=== PATIENT | female | born 1940 | race Hispanic/Latino ===

== ENCOUNTER 2018-09-15 02:41 | Observation (INO) | payer MEDICARE ==
[2018-09-15] VITALS (7 sets, daily range): BP systolic 123–159; BP diastolic 63–84
[~2018-09-15] VITALS: Ht 152.4 cm; Wt 58.2 kg
[~2018-09-15 02:41] MED LIST: AMLO5TAB9 PO; LACT1CAP58 PO; LOSA50TA64 PO; METF-444 PO; METO-391 PO; PANT40TA25 PO; SIMV40TA59 PO
[2018-09-15 03:20] LABS: EOSINOPHILS % (AUTO) 2.4 % (0.0-8.0); HEMATOCRIT 38.7 % (36-48); LYMPHOCYTES % (AUTO) 38.3 % (21.0-51.0); MEAN CORPUSCULAR HEMOGLOBIN 31.5 pg (27.0-33.0); MEAN CORPUSCULAR HGB CONC 33.7 g/dL (32.0-36.0); MEAN CORPUSCULAR VOLUME 93.4 fL (79-99); NEUTROPHILS % (AUTO) 49.3 % (40.0-77.0); NUCLEATED RED BLOOD CELLS 0.1 % (0.0-0.19); PLATELET COUNT (AUTO) 212 K/uL (130-400); RED BLOOD CELL COUNT(AUTO) 4.14 MIL/uL (4.00-5.50); RED CELL DISTRIBUTION WIDTH 13.7 % (11.0-15.5); WHITE BLOOD COUNT (AUTO) 6.1 K/uL (4.8-10.8)
[2018-09-15 03:26] LABS: CREATININE 0.8 mg/dL (0.5-1.5); POTASSIUM 3.7 mmol/L (3.5-5.1)
[2018-09-15 03:30] LABS: INR 0.95 (0.85-1.15); PARTIAL THROMBOPLASTIN TIME 30.2 SEC (26.3-35.5)
[2018-09-15 03:45] LABS: BILIRUBIN,TOTAL 0.4 mg/dL (0.2-1.0); TOTAL PROTEIN, SERUM 7.5 g/dL (6.0-8.3)
[2018-09-15] MEDS ORDERED: DiphenhydrAMINE HCL 50 MG/ML VIAL ONE (04:06)
[2018-09-15 04:29] LABS: APPEARANCE,URINE Clear (CLEAR); BILIRUBIN,URINE Negative (NEGATIVE); COLOR,URINE Yellow (YELLOW); GLUCOSE, URINE (UA) Negative (NEGATIVE); KETONES,URINE Negative (NEGATIVE); LEUKOCYTE ESTERASE ,URINE Negative (NEGATIVE); NITRATE,URINE Negative (NEGATIVE); OCCULT BLOOD,URINE Negative (NEGATIVE); PH,URINE 7.5 (5.0-8.0); PROTEIN,URINE Negative (NEGATIVE); UROBILINOGEN,URINE 0.2 mg/dL (0.2-1.0)
[2018-09-15] MEDS ORDERED: HYDRALAZINE HCL 20 MG/ML VIAL IV PRN (06:45)
[2018-09-15] MEDS ORDERED: ALBU8.5H8 PUFF (08:12)
[2018-09-15] MEDS ORDERED: SUCR1TAB PO (08:12)
[2018-09-15 08:34] LABS: HEMOGLOBIN A1C 5.7 % (4.0-6.0)
[2018-09-15] MEDS: SODIUM CHLORIDE 0.9% 1000ML 1,000 ML IV SCH ×2 (08:35→21:15)
[2018-09-15 08:51] LABS: CREATINE KINASE, TOTAL 80 U/L (21-232); MYOGLOBIN 53 ng/mL (10-92); THYROID STIMULATING HORMONE 2.34 uIU/mL (0.36-3.74); TROPONIN I < 0.04 ng/mL (0.00-0.06)
[2018-09-15] MEDS: ASPIRIN 325 MG TABLET PO SCH (09:00)
[2018-09-15] MEDS ORDERED: PANTOPRAZOLE 40 MG/VIAL IVP SCH (09:00)
[2018-09-15] MEDS: ENOXAPARIN SODIUM 40 MG/0.4 ML SYRINGE SQ SCH (09:12)
[2018-09-15] MEDS: INSULIN HUMULIN R 100 UNIT/ML 3ML SQ SCH ×3 (11:30→21:00)
[2018-09-15 14:56] LABS: CREATINE KINASE, TOTAL 73 U/L (21-232); MYOGLOBIN 46 ng/mL (10-92); TROPONIN I < 0.04 ng/mL (0.00-0.06)
[2018-09-15] MEDS: PANTOPRAZOLE SODIUM 40 MG TABLET.DR PO SCH (15:17)
[2018-09-15] MEDS ORDERED: NITROGLYCERIN 0.4 MG SL TAB SL ONE (17:50)
--- NOTE | 2018-09-15 17:55 | NUR ---
SUBLINGUAL NITRO GIVEN PT C/O CHEST PAIN 05/19.
--- NOTE | 2018-09-15 18:10 | NUR ---
CHEST PAIN 0/10 AFTER 1 SUBLINGUAL NITRO GIVEN.
[2018-09-15] MEDS ORDERED: PHARMACY COMMUNICATION MISC SCH (20:30)
[2018-09-15] MEDS ORDERED: COMPOUND PO MISCELLANEOUS 1 EACH MISC MISC PRN (20:45)
[2018-09-15] MEDS ORDERED: LIDOCAINE HCL 2% VISCOUS 30 ML, MAG HYDROX/AL HYDROX/SIMETH 30 ML, DICYCLOMINE HCL 20 MG PO ONE ×3 (21:35)
[2018-09-15 23:07] LABS: CREATINE KINASE, TOTAL 59 U/L (21-232); MYOGLOBIN 36 ng/mL (10-92); TROPONIN I < 0.04 ng/mL (0.00-0.06)
[2018-09-16 03:00] VITALS: BP 145/77
[2018-09-16 03:53] LABS: CHOLESTEROL 190 mg/dL (<200); HDL CHOLESTEROL 59 mg/dL (35-85); LDL DIRECT 119 mg/dL (0-99); TRIGLYCERIDES 92 mg/dL (30-200)
[2018-09-16] MEDS: INSULIN HUMULIN R 100 UNIT/ML 3ML SQ SCH (05:31)
[2018-09-16 07:45] VITALS: BP 146/66
--- NOTE | 2018-09-16 07:50 | NUR ---
ASSESSMENT ENCOUNTERED PT SITTING UP IN CHAIR, A&OX3 BUT FORGETFUL, CALM COOPERATIVE AND DOES NOT APPEAR TO BE IN ANY DISTRESS NOR ANY NEURO DEFICITS PRESENT. PT IS AMBULATORY, GAIT SLOW BUT STEADY WITH ASSIST. PT IS ABLE TO TOLERATE FOODS, FLUIDS AND MEDICATION WITH NO THROAT CLEARING OR COUGH. PT RESTING COMFORTABLY, CALL LIGHT WITHIN REACH, FAMILY AT BEDSIDE.
[2018-09-16] MEDS ORDERED: Metoprolol Succinate 50 MG PO SCH (09:00)
[2018-09-16] MEDS ORDERED: METFORMIN HCL 500 MG TABLET PO SCH (09:00)
[2018-09-16] MEDS ORDERED: SIMVASTATIN 20 MG TABLET PO SCH (09:00)
[2018-09-16] MEDS: ASPIRIN 325 MG TABLET PO SCH (09:00)
[2018-09-16] MEDS ORDERED: PANTOPRAZOLE SODIUM 40 MG TABLET.DR PO SCH (09:00)
[2018-09-16] MEDS ORDERED: VENTOLIN HFA IH PRN (09:00)
[2018-09-16] MEDS ORDERED: SUCRALFATE 1 GM TABLET PO SCH (09:00)
[2018-09-16] MEDS ORDERED: AMLODIPINE BESYLATE 5 MG TAB PO SCH (09:00)
[2018-09-16] MEDS: PANTOPRAZOLE SODIUM 40 MG TABLET.DR PO SCH (09:11)
[2018-09-16] MEDS: ENOXAPARIN SODIUM 40 MG/0.4 ML SYRINGE SQ SCH (09:12)
[2018-09-16] MEDS ORDERED: NITR0.4T50 SL (10:18)
--- NOTE | 2018-09-16 11:00 | NUR ---
DISCHARGE INSTRUCTIONS GIVEN, PIV REMOVED AND INTACT, DISCHARGED HOME TO FAMILY VEHICLE VIA WHEELCHAIR.
== END 2018-09-16 11:16 | disposition home or self-care (01) ==
LOC: EDH 02:41 → EDHIP 06:34 → 2DH 08:18
PROVIDERS: ADMIT Internal Medicine; ATTEND Internal Medicine
DX: G45.9 Transient cerebral ischemic attack, unspecified (principal); R47.01 Aphasia; R07.89 Other chest pain; E11.51 Type 2 diabetes mellitus with diabetic peripheral angiopathy without gangrene; H53.2 Diplopia; E78.2 Mixed hyperlipidemia; I10 Essential (primary) hypertension; I25.10 Atherosclerotic heart disease of native coronary artery without angina pectoris; I44.0 Atrioventricular block, first degree; K21.9 Gastro-esophageal reflux disease without esophagitis; Z86.73 Personal history of transient ischemic attack (TIA), and cerebral infarction without residual deficits; Z87.891 Personal history of nicotine dependence; Z95.5 Presence of coronary angioplasty implant and graft; Z79.82 Long term (current) use of aspirin; Z79.899 Other long term (current) drug therapy
CPT/HCPCS: 36415 ×2; 70450; 70551; 71045; 80053; 80061; 81003; 82550 ×4; 82948 ×4; 83036; 83874 ×4; 83880; 84443; 84484 ×4; 85025; 85610; 85730; 93005 ×3; 93306; 93880; 96372 ×2; 99284; G0378 ×29; J1200; J1650 ×2; J1815; J7030 ×2; C9113

== ENCOUNTER 2019-03-13 20:22 | Inpatient (IN) | payer MEDICARE ==
[~2019-03-13 20:22] MED LIST changes: +ALBU8.5H8 PUFF; -LACT1CAP58 PO; -LOSA50TA64 PO; +NITR0.4T50 SL; +SUCR1TAB PO
[2019-03-13] MEDS ORDERED: MORPHINE SULFATE 2 MG/ML 1ML SYG ONE (20:54)
[2019-03-13 21:06] LABS: BASOPHILS % (AUTO) 0.7 % (0.0-5.0); EOSINOPHILS % (AUTO) 1.3 % (0.0-8.0); HEMATOCRIT 37.8 % (36-48); LYMPHOCYTES % (AUTO) 46.4 % (21.0-51.0); MEAN CORPUSCULAR HEMOGLOBIN 32.1 pg (27.0-33.0); MEAN CORPUSCULAR HGB CONC 34.2 g/dL (32.0-36.0); MEAN CORPUSCULAR VOLUME 94.1 fL (79-99); NEUTROPHILS % (AUTO) 41.6 % (40.0-77.0); PLATELET COUNT (AUTO) 203 K/uL (130-400); RED BLOOD CELL COUNT(AUTO) 4.02 MIL/uL (4.00-5.50); RED CELL DISTRIBUTION WIDTH 14.1 % (11.0-15.5); WHITE BLOOD COUNT (AUTO) 6.4 K/uL (4.8-10.8)
[2019-03-13] MEDS ORDERED: ASPIRIN 325 MG TABLET ONE (21:08)
[2019-03-13] MEDS ORDERED: NITROGLYCERIN 1GM/1 INCH PACKET TD ONE (21:09)
[2019-03-13 21:25] LABS: AMYLASE 36 U/L (25-115); CREATINE KINASE, TOTAL 96 U/L (21-232); LIPASE 113 U/L (114-286)
[2019-03-13 21:36] LABS: B-TYPE NATRIURETIC PEPTIDE 76 pg/mL (0-100)
[2019-03-13 21:43] LABS: CREATININE 0.8 mg/dL (0.5-1.5); POTASSIUM 3.6 mmol/L (3.5-5.1)
[2019-03-13 21:48] LABS: ALBUMIN 3.7 g/dL (3.5-5.0); BILIRUBIN,TOTAL 0.2 mg/dL (0.2-1.0); TOTAL PROTEIN, SERUM 7.2 g/dL (6.0-8.3)
[2019-03-13 21:56] LABS: APPEARANCE,URINE Clear (CLEAR); BILIRUBIN,URINE Negative (NEGATIVE); COLOR,URINE Yellow (YELLOW); GLUCOSE, URINE (UA) Negative (NEGATIVE); KETONES,URINE Negative (NEGATIVE); LEUKOCYTE ESTERASE ,URINE Negative (NEGATIVE); NITRATE,URINE Negative (NEGATIVE); OCCULT BLOOD,URINE Negative (NEGATIVE); PH,URINE 7.5 (5.0-8.0); PROTEIN,URINE Negative (NEGATIVE)
[2019-03-13] MEDS ORDERED: GLUCAGON 1MG KIT 1 MG ML IM PRN (23:15)
[2019-03-13] MEDS ORDERED: DEXTROSE 50%-WATER 50 ML DISP.SYRIN IV PRN (23:15)
[2019-03-13 23:27] LABS: MAGNESIUM 2.3 mg/dL (1.80-2.40); THYROID STIMULATING HORMONE 2.58 uIU/mL (0.36-3.74)
[2019-03-13 23:30] LABS: HEMOGLOBIN A1C 5.6 % (4.0-6.0)
[2019-03-13] MEDS ORDERED: NITROGLYCERIN 0.4 MG SL TAB SL PRN (23:30)
[2019-03-13] MEDS ORDERED: ACETAMINOPHEN 325 MG TAB PO PRN ×2 (23:30)
[2019-03-13] MEDS ORDERED: ONDANSETRON HCL 4 MG/2 ML VIAL IV PRN (23:30)
[2019-03-14] MEDS ORDERED: LACTULOSE 20 GM/30 ML UDCUP PO PRN (01:45)
[2019-03-14] MEDS ORDERED: DIPHENHYDRAMINE HCL 25 MG CAPSULE ONE (03:56)
[2019-03-14 04:48] LABS: BASOPHILS % (AUTO) 3.1 % (0.0-5.0); EOSINOPHILS % (AUTO) 1.5 % (0.0-8.0); HEMATOCRIT 40.2 % (36-48); LYMPHOCYTES % (AUTO) 33.1 % (21.0-51.0); MEAN CORPUSCULAR HEMOGLOBIN 31.8 pg (27.0-33.0); MEAN CORPUSCULAR HGB CONC 34.2 g/dL (32.0-36.0); MEAN CORPUSCULAR VOLUME 93.1 fL (79-99); NEUTROPHILS % (AUTO) 53.3 % (40.0-77.0); NUCLEATED RED BLOOD CELLS 0.1 % (0.0-0.19); PLATELET COUNT (AUTO) 230 K/uL (130-400); RED BLOOD CELL COUNT(AUTO) 4.32 MIL/uL (4.00-5.50); RED CELL DISTRIBUTION WIDTH 13.9 % (11.0-15.5)
[2019-03-14 05:01] LABS: ALBUMIN 3.1 g/dL (3.5-5.0); BILIRUBIN,TOTAL 0.3 mg/dL (0.2-1.0); CREATININE 0.5 mg/dL (0.5-1.5); POTASSIUM 3.2 mmol/L (3.5-5.1); TOTAL PROTEIN, SERUM 6.3 g/dL (6.0-8.3)
[2019-03-14 05:05] LABS: CREATINE KINASE, TOTAL 75 U/L (21-232); MYOGLOBIN 40 ng/mL (10-92); TROPONIN I < 0.04 ng/mL (0.00-0.06)
[2019-03-14] MEDS ORDERED: LIDOCAINE HCL-MPF 1% 2ML VIAL IVP PRN (06:00)
[2019-03-14] MEDS ORDERED: POTASSIUM CHLORIDE 20MEQ/100ML 100 ML IV PRN (06:00)
[2019-03-14] MEDS ORDERED: MAGNESIUM 2GM PREMIX 50ML 50 ML IV PRN (06:00)
[2019-03-14] MEDS ORDERED: POTASSIUM CHLORIDE 10% ELIXIR 20 MEQ/15 ML UDCUP PO PRN (06:00)
[2019-03-14] MEDS: INSULIN HUMULIN R 100 UNIT/ML 3ML SQ SCH ×4 (07:30→21:00)
[2019-03-14] MEDS: METOPROLOL TARTRATE 25 MG TAB PO SCH ×2 (09:00→21:44)
[2019-03-14] MEDS: ASPIRIN 325 MG TABLET PO SCH (09:00)
[2019-03-14] MEDS: FAMOTIDINE 20MG TAB 20 MG TAB PO SCH ×2 (09:00→21:44)
[2019-03-14] MEDS: ENOXAPARIN SODIUM 30 MG/0.3 ML SQ SCH (09:00)
[2019-03-14] MEDS ORDERED: POTASSIUM CHLORIDE 10% ELIXIR 20 MEQ/15 ML UDCUP ONE ×2 (09:05→15:25)
[2019-03-14] MEDS ORDERED: FAMOTIDINE 20MG TAB 20 MG TAB ONE (09:44)
[2019-03-14] MEDS ORDERED: ASPIRIN 325 MG TABLET ONE (09:44)
[2019-03-14] MEDS ORDERED: ENOXAPARIN SODIUM 30 MG/0.3 ML SQ ONE (09:45)
[2019-03-14] MEDS ORDERED: METOPROLOL TARTRATE 25 MG TAB ONE (09:45)
[2019-03-14] MEDS: LACTULOSE 20 GM/30 ML UDCUP PO SCH (11:00)
[2019-03-14 13:48] LABS: CREATINE KINASE, TOTAL 55 U/L (21-232); MYOGLOBIN 64 ng/mL (10-92); TROPONIN I < 0.04 ng/mL (0.00-0.06)
--- NOTE | 2019-03-14 18:15 | NUR ---
REPORT RECEIVED BY YNES BAIRES FROM YNES TERAN(ED). PATIENT ADMITTED UNDER DR. MOORE FOR CHEST PAIN R/O ACS. NO CONSULTS. PATIENT AT THIS TIME.
[2019-03-14 18:18] VITALS: BP 148/75
[2019-03-14] MEDS ORDERED: AMLO5TAB9 PO (18:40)
[2019-03-14] MEDS: DOCUSATE SODIUM 100 MG CAP PO SCH (21:44)
[2019-03-14 23:58] VITALS: BP 159/80
[2019-03-15 04:13] VITALS: BP 118/64
[2019-03-15 05:11] LABS: HEMATOCRIT 40.3 % (36-48); MEAN CORPUSCULAR HEMOGLOBIN 32.3 pg (27.0-33.0); MEAN CORPUSCULAR VOLUME 92.5 fL (79-99); PLATELET COUNT (AUTO) 210 K/uL (130-400); RED BLOOD CELL COUNT(AUTO) 4.35 MIL/uL (4.00-5.50); RED CELL DISTRIBUTION WIDTH 14.1 % (11.0-15.5); WHITE BLOOD COUNT (AUTO) 8.2 K/uL (4.8-10.8)
[2019-03-15 05:21] LABS: CREATININE 0.8 mg/dL (0.5-1.5); MAGNESIUM 2.3 mg/dL (1.80-2.40); POTASSIUM 3.2 mmol/L (3.5-5.1)
[2019-03-15] MEDS: INSULIN HUMULIN R 100 UNIT/ML 3ML SQ SCH ×4 (05:49→21:00)
[2019-03-15 07:40] VITALS: BP 161/71
[2019-03-15] MEDS: DOCUSATE SODIUM 100 MG CAP PO SCH ×3 (09:58→21:00)
[2019-03-15] MEDS: ASPIRIN 325 MG TABLET PO SCH (09:58)
[2019-03-15] MEDS: FAMOTIDINE 20MG TAB 20 MG TAB PO SCH ×2 (09:58→20:59)
[2019-03-15] MEDS: METOPROLOL TARTRATE 25 MG TAB PO SCH ×4 (09:58→21:00)
[2019-03-15] MEDS: ENOXAPARIN SODIUM 30 MG/0.3 ML SQ SCH (09:59)
[2019-03-15 12:00] VITALS: BP 131/62
[2019-03-15] MEDS: LACTULOSE 20 GM/30 ML UDCUP PO SCH (13:09)
[2019-03-15] MEDS: POLYETHYLENE GLYCOL 3350 17 GM POWD.PACK PO SCH (15:27)
[2019-03-15 16:00] VITALS: BP 90/56
[2019-03-15] MEDS: POTASSIUM CHLORIDE 20 MEQ ERTAB PO PRN ×2 (18:32→21:00)
[2019-03-15 19:45] VITALS: BP 143/78
--- NOTE | 2019-03-15 20:46 | NUR ---
cm note met with patient's grand daughter bob mauricio, and states resides at home wiht daughter yajaira corado , needs assist with adls and daughter yajaira coronado, is also in the process of getting a provider. uses walker for ambulation. has a w/c , daughter assists with transport. dc plan is back to home at time of dc. no dc needs.discussed possible snf . sttates they wish to wait until dr dave visits tomorrow to decide if snf if really necessary prefer for her to return back home. Addendum: 03/15/19 at 2047 by JAVON POWELL CM Amended: Links added.
--- NOTE | 2019-03-15 22:00 | NUR ---
PATIENT WITH DEMENTIA CONFUSED AND UNCOOPERATIVE WITH TAKING EVENING MEDICATIONS. PATIENT STATES WHEN ASKED WHAT HER NAME IS " THEY CALL ME JACK , I DON'T KNOW WHY".
[2019-03-15 23:47] VITALS: BP 139/73
[2019-03-16] MEDS: FAMOTIDINE 20MG TAB 20 MG TAB PO SCH ×2 (00:08→10:12)
--- NOTE | 2019-03-16 01:11 | NUR ---
REPORT GIVEN TO YNES MARTINEZ. PATIENT TRANSFERRED TO ROOM 325 WITH 1:1 SITTER.
--- NOTE | 2019-03-16 01:11 | NUR ---
ASSUMED CARE Assumed care this time,pt sleeping quietly in bed,No distress noted.Sitter at bedside.
[2019-03-16 04:00] VITALS: BP 113/74
[2019-03-16] MEDS: INSULIN HUMULIN R 100 UNIT/ML 3ML SQ SCH ×3 (06:09→20:23)
[2019-03-16 06:45] LABS: HEMATOCRIT 39.8 % (36-48); MEAN CORPUSCULAR HEMOGLOBIN 31.4 pg (27.0-33.0); MEAN CORPUSCULAR HGB CONC 34.3 g/dL (32.0-36.0); MEAN CORPUSCULAR VOLUME 91.6 fL (79-99); NUCLEATED RED BLOOD CELLS 0.1 % (0.0-0.19); PLATELET COUNT (AUTO) 226 K/uL (130-400); RED BLOOD CELL COUNT(AUTO) 4.35 MIL/uL (4.00-5.50); RED CELL DISTRIBUTION WIDTH 14.1 % (11.0-15.5); WHITE BLOOD COUNT (AUTO) 6.3 K/uL (4.8-10.8)
[2019-03-16 07:02] LABS: CREATININE 0.8 mg/dL (0.5-1.5); POTASSIUM 3.6 mmol/L (3.5-5.1)
[2019-03-16 07:19] VITALS: BP 156/86
[2019-03-16] MEDS ORDERED: ASPIRIN 325 MG TABLET PO SCH (09:00)
--- NOTE | 2019-03-16 10:00 | NUR ---
Dr. Paulino rounding with son at bedside
[2019-03-16] MEDS: DOCUSATE SODIUM 100 MG CAP PO SCH ×2 (10:12→20:11)
[2019-03-16] MEDS: ENOXAPARIN SODIUM 30 MG/0.3 ML SQ SCH (10:12)
[2019-03-16] MEDS: METOPROLOL TARTRATE 25 MG TAB PO SCH ×3 (10:13→20:12)
[2019-03-16] MEDS: POLYETHYLENE GLYCOL 3350 17 GM POWD.PACK PO SCH ×2 (10:13→11:30)
[2019-03-16] MEDS ORDERED: ASPIRIN 81MG TAB.CHEW ONE (10:19)
[2019-03-16] MEDS ORDERED: GADODIAMIDE 10 MMOL/20 ML VIAL IV ONE (10:36)
[2019-03-16] MEDS: LACTULOSE 20 GM/30 ML UDCUP PO SCH (11:00)
[2019-03-16 11:34] LABS: T4 (THYROXINE) 9.5 ug/dL (4.7-13.3); THYROID STIMULATING HORMONE 2.57 uIU/mL (0.36-3.74)
[2019-03-16 12:00] VITALS: BP 117/74
[2019-03-16 16:00] VITALS: BP 157/89
[2019-03-16 19:00] VITALS: BP 105/64
--- NOTE | 2019-03-16 21:00 | NUR ---
ACTIVITY Family at bedside,pt ambulating in the hallway,zane well.
--- NOTE | 2019-03-17 03:04 | NUR ---
SLEEP Pt slept fairly,respirations even and unlabored.
[2019-03-17 04:02] VITALS: BP 128/74
[2019-03-17 04:57] LABS: HEMATOCRIT 38.5 % (36-48); MEAN CORPUSCULAR HEMOGLOBIN 32.1 pg (27.0-33.0); MEAN CORPUSCULAR HGB CONC 34.8 g/dL (32.0-36.0); MEAN CORPUSCULAR VOLUME 92.3 fL (79-99); PLATELET COUNT (AUTO) 206 K/uL (130-400); RED BLOOD CELL COUNT(AUTO) 4.18 MIL/uL (4.00-5.50); RED CELL DISTRIBUTION WIDTH 13.8 % (11.0-15.5); WHITE BLOOD COUNT (AUTO) 7.3 K/uL (4.8-10.8)
[2019-03-17 05:07] LABS: CREATININE 0.7 mg/dL (0.5-1.5); POTASSIUM 3.5 mmol/L (3.5-5.1)
[2019-03-17] MEDS: POTASSIUM CHLORIDE 20 MEQ ERTAB PO PRN (05:36)
[2019-03-17] MEDS: INSULIN HUMULIN R 100 UNIT/ML 3ML SQ SCH (06:13)
[2019-03-17 08:00] VITALS: BP 148/88
[2019-03-17] MEDS: FAMOTIDINE 20MG TAB 20 MG TAB PO SCH (08:47)
[2019-03-17] MEDS: DOCUSATE SODIUM 100 MG CAP PO SCH (08:47)
[2019-03-17] MEDS: METOPROLOL TARTRATE 25 MG TAB PO SCH (08:47)
[2019-03-17] MEDS: POLYETHYLENE GLYCOL 3350 17 GM POWD.PACK PO SCH (08:47)
[2019-03-17] MEDS: ENOXAPARIN SODIUM 30 MG/0.3 ML SQ SCH (08:48)
--- NOTE | 2019-03-17 13:55 | NUR ---
DC PLAN VISITED WITH PATIENT AND FAMILY WENT OVER PLAN OF CARE FOR DC. NOT SURE ABOUT SNF. PATIENT FAMILY WANTS [facility] CALLED SPOKE TO KAYLIE THEY DO NOT ACCEPT CURRENT INSURANCE. PATIENT HAS [facility]. EXPLAINED ALSO THAT FACILITIES DO NOT DO SITTERS AND IF THEY WANTED THAT FOR PATIENT THEY WOULD HAVE TO PRIVATE PAY. GAVE THEM LIST OF FACILITIES IN [place] [facility] PRIVATE CARE GIVERS AND INFO FOR DADS. EXPLAINED ABOUT THE REFERRAL PROCESS AND GOING HOME TO SEE PRIMARY TO GET REFERRAL FOR NUEROLOGY. AT THE END OF 20 MIN CONVERSATION FAMILY DECIDED TO TAKE PATIENT HOME. SAYS THEY FEEL SAFE AND LIKELY WILL HAVE PATIENT MOVE IN WITH SISTER UNTIL THEY CAN GET A BETTER IDEA ON PATIENT MENTAL STATUS. Addendum: 03/17/19 at 1359 by TERESA ZHOU RN CM Amended: Links added.
--- NOTE | 2019-03-17 16:35 | NUR ---
Patient discharged in stable condition. Patient daughter Charlene Purdy given discharge instruction. Patient instructed to f/u with Dr. Paulino as scheduled for f/u and recommendation of NHP. Patient instructed to call 911 or come back to ER if SOB, chest pain, changes in mental status, n/v or servere pain. Daughter states she will be f/u with Dr. Meehan (PCP) tomorrow. IV removed to RAC. pt tolerated well. Telmonitor removed.
== END 2019-03-17 16:55 | disposition home or self-care (01) | DRG 72 ==
LOC: EDH 20:22 → EDHIP 22:23 → OBSVTOIN 22:23 → 4CH 03-14 17:30 → 3DH 03-16 02:02
PROVIDERS: ADMIT Hospitalist; ATTEND Hospitalist
DX: G93.41 Metabolic encephalopathy (principal); R00.0 Tachycardia, unspecified; E87.6 Hypokalemia; K59.00 Constipation, unspecified; I10 Essential (primary) hypertension; R07.9 Chest pain, unspecified; E11.9 Type 2 diabetes mellitus without complications; E78.5 Hyperlipidemia, unspecified; I25.10 Atherosclerotic heart disease of native coronary artery without angina pectoris; Z86.73 Personal history of transient ischemic attack (TIA), and cerebral infarction without residual deficits; Z95.5 Presence of coronary angioplasty implant and graft; Z79.84 Long term (current) use of oral hypoglycemic drugs; Z79.899 Other long term (current) drug therapy
CPT/HCPCS: 36415; 70450; 70553; 71045; 74021; 80048; 80053; 80061; 81003; 82150; 82550; 82607; 82948; 83036; 83690; 83735; 83874; 83880; 84436; 84443; 84484; 85025; 85027; 86592; 93005; A9579; G0378; J1650; Q0163

== ENCOUNTER 2019-06-07 09:12 | Inpatient (IN) | payer MEDICARE ==
[~2019-06-07] VITALS: Ht 152.4 cm; Wt 43.5 kg
[~2019-06-07 09:12] MED LIST changes: -PANT40TA25 PO; -SIMV40TA59 PO; -SUCR1TAB PO
[2019-06-07 09:56] LABS: APPEARANCE,URINE Clear (CLEAR); BILIRUBIN,URINE Negative (NEGATIVE); COLOR,URINE Yellow (YELLOW); GLUCOSE, URINE (UA) Negative (NEGATIVE); KETONES,URINE Negative (NEGATIVE); LEUKOCYTE ESTERASE ,URINE Small (NEGATIVE); NITRATE,URINE Negative (NEGATIVE); OCCULT BLOOD,URINE Negative (NEGATIVE); PH,URINE 6.5 (5.0-8.0); PROTEIN,URINE Negative (NEGATIVE)
[2019-06-07 10:11] LABS: BACTERIA,URINE Rare /HPF (None Seen); RBC,URINE 0-1 /HPF (0-1); SQUAMOUS EPITHELIAL CELL,UR Rare /HPF (0-2); WBC,URINE 0-1 /HPF (0-1)
[2019-06-07] MEDS ORDERED: NITROGLYCERIN 1GM/1 INCH PACKET TD ONE (10:14)
[2019-06-07] MEDS ORDERED: ASPIRIN 325 MG TABLET ONE (10:14)
[2019-06-07 10:33] LABS: BASOPHILS % (AUTO) 0.8 % (0.0-5.0); EOSINOPHILS % (AUTO) 0.6 % (0.0-8.0); HEMATOCRIT 38.2 % (36-48); MEAN CORPUSCULAR HEMOGLOBIN 32.9 pg (27.0-33.0); MEAN CORPUSCULAR HGB CONC 34.7 g/dL (32.0-36.0); MEAN CORPUSCULAR VOLUME 94.6 fL (79-99); MONOCYTES % (AUTO) 6.8 % (3.0-13.0); NEUTROPHILS % (AUTO) 64.8 % (40.0-77.0); NUCLEATED RED BLOOD CELLS 0.1 % (0.0-0.19); PLATELET COUNT (AUTO) 223 K/uL (130-400); RED BLOOD CELL COUNT(AUTO) 4.04 MIL/uL (4.00-5.50); RED CELL DISTRIBUTION WIDTH 14.9 % (11.0-15.5); WHITE BLOOD COUNT (AUTO) 5.9 K/uL (4.8-10.8)
[2019-06-07 10:46] LABS: CREATININE 0.6 mg/dL (0.5-1.5); POTASSIUM 3.8 mmol/L (3.5-5.1)
[2019-06-07 10:50] LABS: ALBUMIN 3.4 g/dL (3.5-5.0); BILIRUBIN,TOTAL 0.3 mg/dL (0.2-1.0); TOTAL PROTEIN, SERUM 6.4 g/dL (6.0-8.3)
[2019-06-07] MEDS ORDERED: DiphenhydrAMINE HCL 50 MG/ML VIAL IV PRN (16:15)
[2019-06-07] MEDS ORDERED: GUAIFENESIN-DM 200/20 MG 10 ML PO PRN (16:15)
[2019-06-07] MEDS ORDERED: DIPHENHYDRAMINE HCL 25 MG CAPSULE PO PRN (16:15)
[2019-06-07] MEDS ORDERED: LACTULOSE 20 GM/30 ML UDCUP PO PRN (16:15)
[2019-06-07] MEDS ORDERED: ACETAMINOPHEN 325 MG TAB PO PRN ×2 (16:15)
[2019-06-07] MEDS ORDERED: NITROGLYCERIN 0.4 MG SL TAB SL PRN (16:15)
[2019-06-07] MEDS ORDERED: SODIUM CHLORIDE 0.9% 1000ML 1,000 ML IV SCH (16:15)
[2019-06-07] MEDS ORDERED: MAG HYDROX/AL HYDROX/SIMETH ES 30 ML SUSP UDCUP PO PRN (16:15)
[2019-06-07] MEDS ORDERED: ONDANSETRON HCL 4 MG/2 ML VIAL IV PRN (16:15)
[2019-06-07 19:15] VITALS: BP 130/63
[2019-06-07 19:50] VITALS: BP 158/90
[2019-06-07] MEDS: FAMOTIDINE 20MG TAB 20 MG TAB PO SCH (20:54)
[2019-06-07] MEDS ORDERED: FAMOTIDINE 20MG TAB 20 MG TAB PO SCH (21:00)
[2019-06-07 23:29] VITALS: BP 145/89
--- NOTE | 2019-06-08 04:12 | NUR ---
PATIENT REFUSED TO LET AM LABS BE DRAWN. PATIENT CONTINUED CONFUSED AND COMBATIVE AT TIMES. CALL ROSAS WITHIN REACH. BED ALARM ON PER PATIENT SAFETY.
[2019-06-08 04:22] VITALS: BP 147/86
[2019-06-08 07:08] LABS: EOSINOPHILS % (AUTO) 0.6 % (0.0-8.0); HEMATOCRIT 42.3 % (36-48); LYMPHOCYTES % (AUTO) 25.2 % (21.0-51.0); MEAN CORPUSCULAR HEMOGLOBIN 32.2 pg (27.0-33.0); MEAN CORPUSCULAR HGB CONC 34.5 g/dL (32.0-36.0); MEAN CORPUSCULAR VOLUME 93.4 fL (79-99); MONOCYTES % (AUTO) 5.4 % (3.0-13.0); NEUTROPHILS % (AUTO) 66.8 % (40.0-77.0); NUCLEATED RED BLOOD CELLS 0.1 % (0.0-0.19); PLATELET COUNT (AUTO) 252 K/uL (130-400); RED BLOOD CELL COUNT(AUTO) 4.53 MIL/uL (4.00-5.50); RED CELL DISTRIBUTION WIDTH 14.6 % (11.0-15.5); WHITE BLOOD COUNT (AUTO) 7.3 K/uL (4.8-10.8)
[2019-06-08 07:15] LABS: CREATININE 0.5 mg/dL (0.5-1.5)
[2019-06-08 07:22] LABS: POTASSIUM 2.8 mmol/L (3.5-5.1)
[2019-06-08 08:06] VITALS: BP 147/76
[2019-06-08] MEDS ORDERED: POTASSIUM CHLORIDE 20 MEQ ERTAB PO PRN (08:30)
[2019-06-08] MEDS ORDERED: POTASSIUM CHLORIDE 20MEQ/100ML 100 ML IV PRN ×2 (08:30)
--- NOTE | 2019-06-08 09:00 | NUR ---
AM ASSESSMENT PT LAYING IN BED, HOB ELEVATED 30 DEGREES, RESTING. DAUGHTER, HOLDEN, @ BEDSIDE. ORIENTED TO NAME. CONFUSED PHRASES. HX OF DEMENTIA. NO SOB. NO DISTRESS NOTED. NO CHEST PAIN OR DISCOMFORT. DENIES PAIN. TELE:SR/STACH. NO N/V AND/OR DIARRHEA. BEDREST. BED FALL ALARM ON. INSTRUCTED TO CALL FOR ASSISTANCE. CALL RALPH W/IN REACH.
[2019-06-08] MEDS: FAMOTIDINE 20MG TAB 20 MG TAB PO SCH ×2 (09:31→21:11)
[2019-06-08] MEDS: POTASSIUM CHLORIDE 10% ELIXIR 20 MEQ/15 ML UDCUP PO PRN ×3 (09:31→14:50)
[2019-06-08] MEDS: ENOXAPARIN SODIUM 30 MG/0.3 ML SQ SCH (09:36)
--- NOTE | 2019-06-08 12:10 | NUR ---
DC PLAN VISITED WITH PATIENT AND DAUGHTER. PATIENT HAS GOTTEN MORE CONFUSED CAN NO LONGER CARE FOR MOTHER. WANTS PERMANENT PLACEMENT. NO POA. NO SPOUSE. [facility] CHOICE IS [facility] SECOND CHOICE W[facility] BE [facility]. GAVIN SIGNED. COLTON LOTT KNOW SAID WILL STOP BY AND VISIT PATIENT. Addendum: 06/08/19 at 1212 by TERESA ZHOU RN CM Amended: Links added.
[2019-06-08 12:33] VITALS: BP_SYST 119; BP_SYST 19; BP_DIAS 65
[2019-06-08 15:36] VITALS: BP 158/89
[2019-06-08] MEDS: RIVASTIGMINE 4.6MG/24HR PATCH TD SCH (17:04)
[2019-06-08 20:31] VITALS: BP 138/82
[2019-06-08 23:46] VITALS: BP 112/69
[2019-06-09 03:27] VITALS: BP 110/77
[2019-06-09 03:54] LABS: BASOPHILS % (AUTO) 0.7 % (0.0-5.0); EOSINOPHILS % (AUTO) 1.1 % (0.0-8.0); HEMATOCRIT 41.7 % (36-48); LYMPHOCYTES % (AUTO) 35.8 % (21.0-51.0); MEAN CORPUSCULAR HEMOGLOBIN 33.3 pg (27.0-33.0); MEAN CORPUSCULAR HGB CONC 35.5 g/dL (32.0-36.0); MEAN CORPUSCULAR VOLUME 93.8 fL (79-99); MONOCYTES % (AUTO) 6.9 % (3.0-13.0); NEUTROPHILS % (AUTO) 55.5 % (40.0-77.0); NUCLEATED RED BLOOD CELLS 0.1 % (0.0-0.19); PLATELET COUNT (AUTO) 242 K/uL (130-400); RED BLOOD CELL COUNT(AUTO) 4.44 MIL/uL (4.00-5.50); RED CELL DISTRIBUTION WIDTH 14.4 % (11.0-15.5); WHITE BLOOD COUNT (AUTO) 7.9 K/uL (4.8-10.8)
[2019-06-09 04:01] LABS: CREATININE 0.7 mg/dL (0.5-1.5)
[2019-06-09] MEDS: POTASSIUM CHLORIDE 10% ELIXIR 20 MEQ/15 ML UDCUP PO PRN ×3 (04:54→11:36)
--- NOTE | 2019-06-09 07:40 | NUR ---
PATIENT INCONTINENT OF LARGE AMOUNT OF URINE. LORRI CARE DONE. ALSO USED BEDPAN. URINE WITH STRONG ODOR AND CONCENTRATED. CHANGED LINENS AND APPLIED ADULT BRIEF UPON REQUEST. REPOSITIONED FOR COMFORT.
[2019-06-09 08:21] VITALS: BP 108/74
[2019-06-09] MEDS: FAMOTIDINE 20MG TAB 20 MG TAB PO SCH (08:47)
[2019-06-09] MEDS: ENOXAPARIN SODIUM 30 MG/0.3 ML SQ SCH (08:48)
[2019-06-09 11:55] VITALS: BP 96/63
[2019-06-09] MEDS: RIVASTIGMINE 4.6MG/24HR PATCH TD SCH (14:08)
--- NOTE | 2019-06-09 14:38 | NUR ---
SILVANA LOTT VISITED SAID PATIENT ACCEPTED 1400. LET NURSE KNOW. PATIENT TO GO VIA AMBULANCE DUE TO WEAKNESS AND CONFUSION. Addendum: 06/09/19 at 1439 by TERESA ZHOU RN CM Amended: Links added.
[2019-06-09 16:36] VITALS: BP 100/70
--- NOTE | 2019-06-09 17:55 | NUR ---
HL REMOVED, CATHETER INTACT.
--- NOTE | 2019-06-09 18:04 | NUR ---
NOTIFIED PT.'S DAUGHTER, PARADISE BARAKAT, VIA TELEPHONE RE:DISCHARGE TO [facility] VIA EMS; VERBALIZED UNDERSTANDING AND QUESTIONS ADDRESSED.
--- NOTE | 2019-06-09 20:10 | NUR ---
EMS HERE TO TRANSPORT PATIENT. DISMISSAL PAPERWORK SENT WITH EMS. DAUGHTER CALLED TO BE MADE AWARE OF PATIENT'S TRANSFER.
== END 2019-06-09 20:10 | DRG 313 ==
LOC: EDH 09:12 → 2DH 16:15
PROVIDERS: ADMIT Family Medicine; ATTEND Family Medicine
DX: R07.9 Chest pain, unspecified (principal); E44.0 Moderate protein-calorie malnutrition; Z68.1 Body mass index [BMI] 19.9 or less, adult; E11.9 Type 2 diabetes mellitus without complications; E78.5 Hyperlipidemia, unspecified; I10 Essential (primary) hypertension; F03.90 Unspecified dementia, unspecified severity, without behavioral disturbance, psychotic disturbance, mood disturbance, and anxiety; Z83.3 Family history of diabetes mellitus; Z82.49 Family history of ischemic heart disease and other diseases of the circulatory system
CPT/HCPCS: 36415; 70450; 80048; 80053; 81001; 82550; 82948; 84484; 85025; 87088; 93005; 97039; G0378; J1650